=== PATIENT | male | born 1955 ===

== ENCOUNTER 2020-01-25 06:37 | Day surgery (SDC) | payer BC, OTHER ==
[~2020-01-25 06:37] MED LIST: Lactated Ringers 1,000 ML IV SCH; ceFAZolin 2 GM in Premix Bag 1 BAG IV SCH
--- NOTE | 2020-01-25 07:05 | PCM.PREANE ---
Preanesthetic Assessment - Anesthesia/Transfusion/Family Hx Anesthesia History: Prior Anesthesia Without Reaction Other Type of Anesthesia Reaction Comment: denies any problems with anesthesia Family History of Anesthesia Reaction: No Transfusion History: No Prior Transfusion(s) Intubation History: Unknown - Review of Systems General: No Symptoms Pulmonary: No Symptoms Cardiovascular: No Symptoms Gastrointestinal: No Symptoms Neurological: No Symptoms Other: Reports: None - Physical Assessment Vital Signs: Last Vital Signs Temp 36.6 C 01/25/20 06:56 Pulse 82 01/25/20 06:56 Resp 14 01/25/20 06:56 BP 142/85 H 01/25/20 06:56 Pulse Ox 100 01/25/20 06:56 Height: 5 ft 9 in Weight: 74.389 kg ASA Class: 2 Mental Status: Alert & Oriented x3 Airway Class: Mallampati = 2 Dentition: Reports: Normal Dentition Thyro-Mental Finger Breadths: 3 Mouth Opening Finger Breadths: 2 ROM/Head Extension: Full Lungs: Clear to Auscultation, Normal Respiratory Effort Cardiovascular: Regular Rate, Regular Rhythm - Allergies Allergies/Adverse Reactions: Allergies Allergy/AdvReac Type Severity Reaction Status Date / Time banana concentrate Allergy eye Uncoded 01/19/20 13:20 swelling - Blood Blood Available: No - Anesthesia Plan Pre-Op Medication Ordered: None - Acknowledgements Anesthesia Type Planned: General Anesthesia Pt an Appropriate Candidate for the Planned Anesthesia: Yes Alternatives and Risks of Anesthesia Discussed w Pt/Guardian: Yes Pt/Guardian Understands and Agrees with Anesthesia Plan: Yes PreAnesthesia Questionnaire HEENT History: Reports: Hard of Hearing, Impaired Vision Other HEENT History: wears glasses, angus hearing aids Cardiovascular History: Reports: None Respiratory History: Reports: Other (See Below) Other Respiratory History: asthma as a child Gastrointestinal History: Reports: Colon Polyp Genitourinary History: Reports: None Musculoskeletal History: Reports: Osteoarthritis Neurological History: Reports: None Psychiatric History: Reports: None Endocrine/Metabolic History: Reports: None Hematologic History: Reports: None Immunologic History: Reports: None Oncologic (Cancer) History: Reports: None Dermatologic History: Reports: None - Past Surgical History Head Surgeries/Procedures: Reports: None HEENT Surgical History: Reports: Tonsillectomy Cardiovascular Surgical History: Reports: None Respiratory Surgical History: Reports: None GI Surgical History: Reports: Colonoscopy () Other GI Surgeries/Procedures: hx hemorroidectomy Male Surgical History: Reports: None Endocrine Surgical History: Reports: None Neurological Surgical History: Reports: None Musculoskeletal Surgical History: Reports: None Oncologic Surgical History: Reports: None Dermatological Surgical History: Reports: None - SUBSTANCE USE Smoking Status *Q: Never Smoker - HOME MEDS Home Medications: Home Meds Dupilumab [Dupixent] 1 injection SUBCUT ASDIRECTED 01/19/20 [History] - CURRENT (IN HOUSE) MEDS Current Meds: Current Medications Cefazolin Sodium/Dextrose 2 gm (/ Premix) 50 mls @ 100 mls/hr IV ONETIME MAKAYLA Lactated Ringer's (Ringers, Lactated) 1,000 mls @ 125 mls/hr IV ASDIRECTED [facility] Last Admin: 01/25/20 07:02 Dose: 125 mls/hr Documented by:
[2020-01-25] MEDS ORDERED: Propofol 200 MG/20 ML SDV ONE ×2 (07:12→09:35)
[2020-01-25] MEDS ORDERED: fentaNYL 250 MCG/5 ML SDV ONE (07:12)
[2020-01-25] MEDS ORDERED: Midazolam 1 MG/ML 2 ML SDV ONE (07:12)
[2020-01-25] MEDS ORDERED: Rocuronium Bromide 50 MG/5 ML Syringe ONE (07:15)
[2020-01-25] MEDS ORDERED: Ondansetron 4 MG/2 ML SDV ONE (07:15)
[2020-01-25] MEDS ORDERED: Dexamethasone 4 MG/ML 5 ML MDV ONE (07:15)
[2020-01-25] MEDS ORDERED: Lidocaine 2% 5 ML SDV ONE (07:16)
[2020-01-25] MEDS ORDERED: Bupivacaine 0.5% 30 ML SDV ONE (07:22)
[2020-01-25] MEDS ORDERED: ceFAZolin 1 GM Vial ONE (07:22)
[2020-01-25] MEDS ORDERED: Ondansetron 4 MG/2 ML SDV IVPUSH PRN (10:29)
[2020-01-25] MEDS ORDERED: Acetaminophen/HYDROcodone 325-5 MG Tab PO PRN (10:29)
[2020-01-25] MEDS ORDERED: Morphine 10 MG/ML Syringe IVPUSH PRN (10:29)
[2020-01-25] MEDS ORDERED: Lactated Ringers 1,000 ML IV SCH (10:30)
--- NOTE | 2020-01-25 10:36 | PCM.OPNOTE ---
- General Post-Op/Procedure Note Date of Surgery/Procedure: 01/25/20 Operative Procedure(s): Repair incarcerated left inguinal hernia with extra large Bard PerFix plug and patch. Repair of reducible right inguinal hernia with a small Bard PerFix plug and patch Pre Op Diagnosis: Incarcerated left inguinal hernia. Reducible right inguinal hernia. Post-Op Diagnosis: Same Anesthesia Technique: General ET Tube (ASA II) Primary Surgeon: Rajeev Olsen Human Service Technician: Celeste Wilson Fluid Replacement, Intraop: 1,500 EBL in mLs: 30 Condition: Good Free Text/Narrative:: DICTATION [id number] CPT CODE 41205/99764
--- NOTE | 2020-01-25 10:54 | PCM.POSTAN ---
POST ANESTHESIA ASSESSMENT - MENTAL STATUS Mental Status: Alert, Oriented - VITAL SIGNS Vital Signs: Last Vital Signs Temp 37.0 C 01/25/20 10:22 Pulse 93 01/25/20 10:45 Resp 7 L 01/25/20 10:45 BP 119/77 01/25/20 10:45 Pulse Ox 96 01/25/20 10:45 - RESPIRATORY Respiratory Status: Respiratory Rate WNL, Airway Patent, O2 Saturation Stable - CARDIOVASCULAR CV Status: Pulse Rate WNL, Blood Pressure Stable - GASTROINTESTINAL GI Status: No Symptoms - PAIN Pain Score: 0 - POST OP HYDRATION Hydration Status: Adequate & Stable - OBSERVATIONS Free Text/Narrative:: No anesthesia problems
--- NOTE | 2020-01-25 13:41 | PCM48HPAN ---
Post Anesthesia Note - EVALUATION WITHIN 48HRS OF ANESTHETIC Vital Signs in Normal Range: Yes Patient Participated in Evaluation: Yes Respiratory Function Stable: Yes Airway Patent: Yes Cardiovascular Function Stable: Yes Hydration Status Stable: Yes Pain Control Satisfactory: Yes Nausea and Vomiting Control Satisfactory: Yes Mental Status Recovered: Yes Vital Signs: Last Vital Signs Temp 36.1 C 01/25/20 11:00 Pulse 81 01/25/20 12:45 Resp 14 01/25/20 12:45 BP 122/72 01/25/20 12:45 Pulse Ox 97 01/25/20 12:45 - COMMENTS/OBSERVATIONS Free Text/Narrative:: No anesthesia problems
--- NOTE | 2020-01-25 14:21 | OR ---
SURGEON: Rajeev Olsen M.D. DATE OF PROCEDURE: 01/25/2020 OPERATION PERFORMED: 1. Repair of incarcerated left inguinal hernia with extra-large Bard PerFix plug and patch. 2. Repair of small right inguinal hernia with small Bard PerFix plug and patch. PRIMARY SURGEON: Rajeev Olsen M.D. [employer]ARD MEMBER: Certified Coder: DARCI Briones student. ANESTHESIA: General endotracheal. ASA CLASSIFICATION: II. PREOPERATIVE DIAGNOSES: 1. Incarcerated left inguinal hernia. 2. Reducible right inguinal hernia. POSTOPERATIVE DIAGNOSES: 1. Incarcerated left inguinal hernia. 2. Reducible right inguinal hernia. ESTIMATED BLOOD LOSS: 30 mL. INTRAOPERATIVE FLUID REPLACEMENT: 1500 mL of crystalloid. DESCRIPTION OF PROCEDURE: The patient was taken to the operating room and placed on the operating table in the supine position. Time-out was called for appropriate identification of the patient and procedure. surgical sites have been marked and numbered prior to the patient entering the operating room. Sequential compression boots were placed. Following satisfactory attainment of general endotracheal anesthesia, the abdomen was prepped with DuraPrep solution and sterile drapes were applied. Skin incisions were marked out in both inguinal creases. The left side was approached first. The skin was infiltrated with 10 mL of 0.5% Marcaine solution. Skin incision was made and deepened through the subcutaneous tissues. Hemostasis was obtained with the use of electrocautery. Dissection was carried down to the external oblique fascia which was opened in the direction of its fibers. The patient did have a large incarcerated inguinal hernia. I was able to deliver this into the wound and with gentle blunt dissection and cautery, able to separate the sac from the cord. The cord was then encircled with a Pinckard drain and protected. The patient did have a large indirect defect, and I was actually able to reduce the hernia sac without any difficulty. An extra- large Bard PerFix plug and patch was brought to the operating table. This was soaked in 1% Ancef solution. The plug was placed into the internal ring and secured with interrupted 0 Ethibond sutures. The patch was placed over the floor and secured inferiorly and medially to Riley ligament transitioning to the inguinal ligament and superiorly to transversalis fascia. The wings were brought around the cord laterally and secured again with 0 Ethibond. All sutures were tied under direct vision. The patient was given a Valsalva maneuver to 40 cm of water and the repair was solid. The wound was irrigated with sterile saline solution. The cord was returned to its anatomic location. The external oblique fascia was closed with 3-0 Vicryl. Low fascia was reapproximated with 3-0 Vicryl and the skin edges were reapproximated with subcuticular 4-0 Monocryl. Our attention was now turned to the right side. The skin was again infiltrated with 0.5% Marcaine solution. Skin incision was made and again deepened through the subcutaneous tissue obtaining hemostasis with the use of electrocautery. The dissection was carried down to the external oblique fascia which was again opened in the direction of its fibers. The cord was then identified, mobilized, and encircled with a Pinckard drain. The patient did have a small direct defect in patchless right internal inguinal ring. A small Bard PerFix plug and patch was brought to the operating table and soaked in 1% Ancef solution. The plug was placed into the internal ring and secured with 0 Ethibond sutures. The patch was placed over the floor for reinforcement and again secured medially and inferiorly to Riley ligament transitioning to the inguinal ligament and superiorly to the transversalis fascia. This was repaired with again multiple interrupted 0 Ethibond sutures. The wings were brought around the cord laterally and secured with a 0 Ethibond suture. Once all sutures had been tied, the patient was given a Valsalva maneuver to 35 cm of water. The repair was solid. The wound was irrigated with sterile saline solution and the cord returned to its anatomic location. The external oblique was reapproximated with running 3-0 Vicryl. Low fascia was closed with 3-0 Vicryl and the skin edges were reapproximated with subcuticular 4-0 Monocryl. Both incisions were Steri-Stripped and dressed with sterile Tegaderm pads. Sponge, needle, and instrument counts were all correct. Prior to emergence from anesthesia, the left testicle was confirmed to be present in the scrotal sac. Following emergence from anesthesia and extubation, the patient was taken to recovery room in stable condition. SUSIE / AILYN /[id number]
== END 2020-01-25 13:43 | disposition home or self-care (01) ==
LOC: MW.SDS 06:37
PROVIDERS: ATTEND Surgery
DX: K40.30 Unilateral inguinal hernia, with obstruction, without gangrene, not specified as recurrent (principal); K40.90 Unilateral inguinal hernia, without obstruction or gangrene, not specified as recurrent; J45.909 Unspecified asthma, uncomplicated; Z72.89 Other problems related to lifestyle
CPT/HCPCS: 49505; 49507; C1781; J0690; J1100; J2001; J2250; J2704; J3010; J3490; J7120; 00830; J2405